=== PATIENT | female | born 1970 | race Two or more races ===

== ENCOUNTER 2017-09-18 08:49 | Day surgery (SDC) | payer BC, MEDICARE ==
[2017-09-11 15:20] VITALS: BP 156/88
[~2017-09-18] VITALS: Ht 167.6 cm; Wt 134.5 kg
[~2017-09-18 08:49] MED LIST: ALBU18HF INH; BIOT1TAB2 PO; BUPIVACAINE/PF-EPI 0.25% 1:200K ONE; CELE200C PO; CETI10TA24 PO; CHOL5000 PO; ETHI1TAB PO; INSU100I17 SC; LISI1TAB7 PO; METF1000 PO; ONDA4TAB13 SL; RANI150T4 PO; SERT100T5 PO; TRAM50TA2 PO; TRIAMCINOLONE
[2017-09-18] MEDS ORDERED: LACTATED RINGERS 1,000 ML IV SCH (09:38)
[2017-09-18] MEDS ORDERED: MIDAZOLAM 1 MG/ML, 2ML ONE (11:05)
[2017-09-18] MEDS ORDERED: FENTANYL PF 250 MCG/5ML ONE (11:05)
[2017-09-18] MEDS ORDERED: SCOPOLAMINE PATCH, 1.5MG PATCH.TD72 TD ONE ×2 (11:40→12:00)
[2017-09-18] MEDS ORDERED: GABAPENTIN 300 MG CAPSULE ONE (11:40)
[2017-09-18] MEDS ORDERED: ACETAMINOPHEN 500 MG TABLET ONE (11:40)
[2017-09-18] MEDS ORDERED: ROCURONIUM 10MG/ML,5ML ONE (11:50)
[2017-09-18] MEDS ORDERED: PROPOFOL 10 MG/ML, 20ML ONE (11:50)
[2017-09-18] MEDS ORDERED: DEXAMETHASONE 4 MG/ML, 1ML ONE (11:50)
[2017-09-18] MEDS ORDERED: GLYCOPYRROLATE 0.2MG/1ML, 5ML ONE (11:50)
[2017-09-18] MEDS ORDERED: SUCCINYLCHOLINE 20 MG/ML, 10ML ONE (11:50)
[2017-09-18] MEDS ORDERED: CEFAZOLIN 1,000 MG ONE (11:50)
[2017-09-18] MEDS ORDERED: ONDANSETRON 2MG/ML, 2ML ONE (11:50)
[2017-09-18] MEDS ORDERED: LIDOCAINE 4%, 4 ML SYR/CANN TP ONE (11:50)
[2017-09-18] MEDS ORDERED: NEOSTIGMINE 1 MG/ML, 10ML ONE (11:50)
[2017-09-18] MEDS ORDERED: GABAPENTIN 300 MG CAPSULE PO ONE (12:00)
[2017-09-18] MEDS ORDERED: ACETAMINOPHEN 500 MG TABLET PO ONE (12:00)
[2017-09-18] MEDS ORDERED: FENTANYL PF 100 MCG/2ML ONE ×2 (13:19→14:06)
[2017-09-18] MEDS ORDERED: LABETALOL 5MG/ML, 20ML IV PRN (13:30)
[2017-09-18] MEDS ORDERED: ONDANSETRON 2MG/ML, 2ML IV PRN (13:30)
[2017-09-18] MEDS ORDERED: hydrALAzine 20 MG/ML, 1ML IV PRN (13:30)
[2017-09-18] MEDS ORDERED: OXYcodone 5 MG/5 ML ORAL.SOL UDC PO PRN (13:30)
[2017-09-18] MEDS ORDERED: PROMETHAZINE 25 MG/ML, 1ML ONE (14:00)
[2017-09-18] MEDS ORDERED: OXYcodone 5 MG/5 ML ORAL.SOL UDC ONE ×2 (14:06→14:07)
[2017-09-18] MEDS: FENTANYL PF 100 MCG/2ML IV PRN ×2 (14:06→14:11)
[2017-09-18] MEDS ORDERED: INSULIN SINGLE DOSE, ER SQ-INSULIN ONE (14:07)
[2017-09-18] MEDS ORDERED: HYDROmorphone 2 MG/ML, 1ML ONE (14:18)
[2017-09-18] MEDS: HYDROmorphone 1 MG/ML, 1ML IV PRN ×2 (14:21→14:29)
[2017-09-18] MEDS ORDERED: PROMETHAZINE 25 MG/ML, 1ML IV PRN (14:30)
[2017-09-18] MEDS ORDERED: KETOROLAC 30 MG/1 ML ONE (16:09)
[2017-09-18] MEDS ORDERED: KETOROLAC 30 MG/1 ML IVPush SCH (16:30)
== END 2017-09-18 17:47 | disposition home or self-care (01) ==
LOC: OUT 08:49
PROVIDERS: ATTEND Specialist
DX: N72 Inflammatory disease of cervix uteri (principal); N94.6 Dysmenorrhea, unspecified; N83.202 Unspecified ovarian cyst, left side; K38.8 Other specified diseases of appendix; N80.9 Endometriosis, unspecified; E28.2 Polycystic ovarian syndrome; E66.01 Morbid (severe) obesity due to excess calories; E11.9 Type 2 diabetes mellitus without complications; Z68.42 Body mass index [BMI] 45.0-49.9, adult; Z98.890 Other specified postprocedural states; Z90.49 Acquired absence of other specified parts of digestive tract; Z72.89 Other problems related to lifestyle; Z88.1 Allergy status to other antibiotic agents; Z88.8 Allergy status to other drugs, medicaments and biological substances; Z79.4 Long term (current) use of insulin
CPT/HCPCS: 36415; 44970; 58571; 82962; 84703; 86850; 86900; 86923; 88304; 88307; J1170; J1885; J2250; J2550; J3010; J7120; S2900; 88302; J0690; J1100; J2405; J2704; J2710; J3490; J0330